=== PATIENT | male | born 1980 | race American Indian/Alaskan Native ===

== ENCOUNTER 2018-08-29 14:23 | Emergency (ER) | payer OTHER ==
[2018-08-29 14:34] VITALS: BP 184/113
[2018-08-29] MEDS ORDERED: ASPIRIN PO ONE (14:34)
--- NOTE | 2018-08-29 15:11 | XRay Report ---
PROCEDURE: XR CHEST 1V AP TECHNIQUE: Single AP chest HISTORY: Chest Pain COMPARISONS: No priors FINDINGS: Cardiomediastinal silhouette within normal limits. Mild interstitial prominence, likely chronic. No evidence of airspace consolidation or pleural effusions. Pulmonary vasculature within normal limits. IMPRESSION: No radiographic evidence of acute disease.. This document is electronically signed by Jeyson Cottrell MD., August 29 2018 03:09:06 PM ET
[2018-08-29 15:18] LABS: Basophils # (Auto) 0.1 K/mm3 (0.0-0.1); Basophils % (Auto) 0.7 % (0.0-1.8); Eosinophils # (Auto) 0.2 K/mm3 (0.0-0.4); Eosinophils % (Auto) 2.1 % (0.0-4.3); Hematocrit 47.8 % (35.5-45.6); Hemoglobin 16.3 gm/dl (11.8-15.2); Lymphocytes # (Auto) 3.3 K/mm3 (1.2-5.4); Lymphocytes % (Auto) 32.7 % (13.4-35.0); Mean Corpuscular HGB Conc 34 % (32-34); Mean Corpuscular Volume 80 fl (84-94); Monocytes % (Auto) 9.6 % (0.0-7.3); Platelet Count 210 K/mm3 (140-440)
[2018-08-29 16:20] LABS: BUN/Creatinine Ratio 10; Blood Urea Nitrogen 11 mg/dL (9-20); Calcium 9.5 mg/dL (8.4-10.2); Hemolysis Index 6
== END 2018-08-29 15:00 | disposition left against medical advice (07) ==
LOC: ED 14:23
DX: R07.89 Other chest pain (principal); Z53.21 Procedure and treatment not carried out due to patient leaving prior to being seen by health care provider
CPT/HCPCS: 36415; 71045; 80048; 84484; 85025; 93005; 93010